=== PATIENT | female | born 1995 | race Two or more races ===

== ENCOUNTER 2020-09-20 09:10 | Emergency (ER) | payer SELFPAY ==
[~2020-09-20] VITALS: Ht 157.5 cm; Wt 61.6 kg
[2020-09-20 09:35] VITALS: BP 123/72
== END 2020-09-20 10:55 | disposition home or self-care (01) ==
LOC: EDBD 09:10 → ER 09:10
DX: B34.9 Viral infection, unspecified (principal); F15.10 Other stimulant abuse, uncomplicated; F17.200 Nicotine dependence, unspecified, uncomplicated; Z20.828 Contact with and (suspected) exposure to other viral communicable diseases
CPT/HCPCS: 71045; 99284; C9803; U0003

== ENCOUNTER 2020-12-01 11:01 | Emergency (ER) | payer MEDICAID, SELFPAY ==
[~2020-12-01] VITALS: Ht 157.5 cm; Wt 58.0 kg
[2020-12-01 11:04] VITALS: BP 129/49
[2020-12-01] MEDS ORDERED: KETOROLAC 30MG/ML VIAL IM ONE (11:45)
[2020-12-01] MEDS ORDERED: IBUP-2029 MT (13:00)
== END 2020-12-01 13:44 | disposition home or self-care (01) ==
LOC: ER 11:43
DX: S40.011A Contusion of right shoulder, initial encounter (principal); S20.20XA Contusion of thorax, unspecified, initial encounter; F15.10 Other stimulant abuse, uncomplicated; W10.8XXA Fall (on) (from) other stairs and steps, initial encounter; Y93.89 Activity, other specified; Y92.018 Other place in single-family (private) house as the place of occurrence of the external cause
CPT/HCPCS: 71101; 73030; 81025; 99284; J1885

== ENCOUNTER 2021-05-16 01:06 | Emergency (ER) | payer MEDICAID ==
[~2021-05-16] VITALS: Ht 167.6 cm; Wt 66.0 kg
[~2021-05-16 01:06] MED LIST: IBUP-2029 MT
[2021-05-16] MEDS ORDERED: SODIUM CHLORIDE 0.9% 1,000 ML IV ONE (02:45)
[2021-05-16 03:11] LABS: CHLORIDE 105 mEq/L (98-107)
[2021-05-16] MEDS ORDERED: IOHEXOL-300 100 ML BOTTLE ONE (05:20)
[2021-05-16] MEDS ORDERED: IBUP-2029 MT (05:40)
[2021-05-16 05:45] VITALS: BP 116/80
== END 2021-05-16 06:15 | disposition home or self-care (01) ==
LOC: ER 01:06
DX: S09.8XXA Other specified injuries of head, initial encounter (principal); S29.8XXA Other specified injuries of thorax, initial encounter; F15.10 Other stimulant abuse, uncomplicated; V47.6XXA Car passenger injured in collision with fixed or stationary object in traffic accident, initial encounter; Y93.89 Activity, other specified; Y92.488 Other paved roadways as the place of occurrence of the external cause
CPT/HCPCS: 36415; 70450; 71045; 71260; 74177; 80048; 81025; 99285; J7030; Q9967

== ENCOUNTER 2022-01-30 14:53 | Inpatient (IN) | payer MEDICAID, OTHER ==
[~2022-01-30] VITALS: Ht 154.9 cm; Wt 77.1 kg
[2022-01-30 19:53] LABS: BASOPHILS % 0.1 % (0.0-2.0); EOSINOPHILS % 0.8 % (0.0-5.0); HEMATOCRIT. 31.3 % (36.0-48.0); LYMPHOCYTES % 10.4 % (20.0-50.0); MEAN CORPUSCULAR HEMOGLOBIN 23.6 pg (28.0-32.0); MEAN CORPUSCULAR VOLUME 73.5 fL (81.0-99.0); MEAN PLATELET VOLUME 8.7 fl (7.4-10.4); MONOCYTES % 4.9 % (2.0-8.0); NEUTROPHILS % 83.8 % (40.0-76.0); PLATELET 317 x1000/uL (130-400); RED BLOOD CELL COUNT 4.25 mill/uL (4.2-5.4); RED CELL DISTRIBUTION WIDTH 17.6 % (11.6-14.6)
[2022-01-30 19:57] LABS: INR 0.9; PROTHROMBIN TIME 9.7 sec (9.6-11.0)
[2022-01-30 20:09] LABS: CHLORIDE 105 mEq/L (98-107)
[2022-01-30 20:31] LABS: B-HCG QUANTITATIVE 956 mIU/mL (<3)
[2022-01-30] MEDS ORDERED: DOXYCYCLINE 100 MG in DEXT 5% WATER 100 ML IV SCH (21:30)
[2022-01-30] MEDS ORDERED: METRONIDAZOLE 500 MG PREMIX 100 ML IV ONE (21:30)
[2022-01-30] MEDS ORDERED: CEFTRIAXONE 1 G PREMIX 50 ML IV ONE (21:30)
[2022-01-30 21:56] LABS: CLARITY URINE CLEAR (CLEAR); COLOR URINE YELLOW (YELLOW); KETONES URINE NEGATIVE (NEGATIVE); LEUKOCYTE ESTERASE URINE 2+ (NEGATIVE); NITRITE URINE NEGATIVE (NEGATIVE); OCCULT BLOOD URINE 2+ (NEGATIVE); PROTEIN URINE TRACE (NEGATIVE); UROBILINOGEN URINE 0.2 E.U./dL (0.2-1.0)
[2022-01-31 02:01] LABS: BASOPHILS % 0.1 % (0.0-2.0); EOSINOPHILS % 1.4 % (0.0-5.0); HEMATOCRIT. 30.1 % (36.0-48.0); HEMOGLOBIN. 9.5 g/dL (12.0-16.0); LYMPHOCYTES % 11.7 % (20.0-50.0); MEAN CORPUSCULAR HEMOGLOBIN 23.1 pg (28.0-32.0); MEAN CORPUSCULAR VOLUME 73.1 fL (81.0-99.0); MEAN PLATELET VOLUME 8.6 fl (7.4-10.4); MONOCYTES % 6.1 % (2.0-8.0); NEUTROPHILS % 80.7 % (40.0-76.0); PLATELET 325 x1000/uL (130-400); RED BLOOD CELL COUNT 4.12 mill/uL (4.2-5.4); RED CELL DISTRIBUTION WIDTH 17.3 % (11.6-14.6)
[2022-01-31] MEDS ORDERED: DOXYCYCLINE 100 MG in DEXT 5% WATER 100 ML IV SCH (03:00)
[2022-01-31] MEDS ORDERED: IBUPROFEN 800MG TABLET PO PRN (03:00)
[2022-01-31 08:00] VITALS: BP 112/58
[2022-01-31 08:03] VITALS: BP 117/61
[2022-01-31 08:30] VITALS: BP 112/58
== END 2022-01-31 09:41 | disposition home or self-care (01) | DRG 561 ==
LOC: ER 14:53 → 6EST 21:58 → ENRESERV 22:42
PROVIDERS: ADMIT Obstetrics & Gynecology; ATTEND Obstetrics & Gynecology
DX: O99.893 Other specified diseases and conditions complicating puerperium (principal); R10.2 Pelvic and perineal pain; R10.9 Unspecified abdominal pain; Z82.49 Family history of ischemic heart disease and other diseases of the circulatory system; Z86.32 Personal history of gestational diabetes
CPT/HCPCS: 36415; 76856; 80053; 81003; 84702; 85025; 86850; 86900; 99285; J0696; J3490; J7060